=== PATIENT | female | born 1995 | race Two or more races ===

== ENCOUNTER 2017-07-25 00:46 | Emergency (ER) | payer SELFPAY ==
[2017-07-25] MEDS: AZITHROMYCIN 250 MG TABLET. PO (01:52)
[2017-07-25] MEDS: cefTRIAXone IM 250 MG VIAL IM (01:53)
[2017-07-28 19:16] LABS: CHLAMYDIA PROBE Negative (Negative); GC PROBE Positive (Negative)
== END 2017-07-25 02:08 | disposition home or self-care (01) ==
LOC: ER 00:46
DX: Z20.2 Contact with and (suspected) exposure to infections with a predominantly sexual mode of transmission (principal)
CPT/HCPCS: 87491; 87591; 96372; 99284-25; J0696; Q0111; Q0144